=== PATIENT | female | born 1995 ===

== ENCOUNTER → 2021-02-05 | Outpatient (CLI) | payer OTHER | END | disposition home or self-care (01) | LOC: PRENATAL 13:00 | PROVIDERS: ATTEND Obstetrics & Gynecology Maternal & Fetal Medicine | DX: O35.0XX1 Maternal care for (suspected) central nervous system malformation in fetus, fetus 1 (principal); O35.3XX1 Maternal care for (suspected) damage to fetus from viral disease in mother, fetus 1; O98.512 Other viral diseases complicating pregnancy, second trimester; Z36.89 Encounter for other specified antenatal screening; Z3A.20 20 weeks gestation of pregnancy ==

== ENCOUNTER 2021-06-24 15:15 | Outpatient (CLI) | payer OTHER | END 2021-06-24 15:16 | disposition home or self-care (01) | LOC: LAB 15:15 | PROVIDERS: ATTEND Specialist | DX: D50.8 Other iron deficiency anemias (principal) ==

== ENCOUNTER 2021-06-26 14:00 | Inpatient (IN) | payer OTHER ==
[~2021-06-26] VITALS: Ht 162.6 cm; Wt 68.5 kg
[2021-06-28] MEDS ORDERED: IRON325 MG PO (01:24)
[2021-06-28] MEDS ORDERED: PRENATAL TABLE1 EAC1 PO (01:24)
[2021-06-28] MEDS ORDERED: FOLIC ACID1 MG PO (01:24)
== END 2021-06-30 17:22 | disposition home or self-care (01) | DRG 807 ==
LOC: OB/GYN 06-27 14:00 → LDR 06-28 01:17 → OB/GYN 06-28 01:17 → SURG-SUITE 06-28 16:57
PROVIDERS: ADMIT Specialist; ATTEND Specialist
PROC: 10E0XZZ Delivery of Products of Conception, External Approach (ICD-10-PCS; principal; 2021-06-28)
PROC: 10907ZC Drainage of Amniotic Fluid, Therapeutic from Products of Conception, Via Natural or Artificial Opening (ICD-10-PCS; 2021-06-28)
PROC: 4A1HXFZ Monitoring of Products of Conception, Cardiac Rhythm, External Approach (ICD-10-PCS; 2021-06-28)
DX: O99.13 Other diseases of the blood and blood-forming organs and certain disorders involving the immune mechanism complicating the puerperium (principal); D69.6 Thrombocytopenia, unspecified; Z37.0 Single live birth; Z3A.40 40 weeks gestation of pregnancy